=== PATIENT | male | born 2000 ===

== ENCOUNTER 2018-01-11 06:44 | Emergency (ER) | payer MEDICAID, OTHER ==
[2018-01-11 06:44] VITALS: BMI 20.7
[2018-01-11 07:03] VITALS: BP 126/77; PULSE 87; RESP 18; TEMP 98; O2SAT 100
--- NOTE | 2018-01-11 07:25 | ED PDOC ---
HPI: General Adult Time Seen by Provider: 01/11/18 07:10 Chief Complaint (Nursing): ENT Problem Chief Complaint (Provider): ENT Problem History Per: Patient History/Exam Limitations: no limitations Onset/Duration Of Symptoms: Mins (x 30) Current Symptoms Are (Timing): Still Present Additional Complaint(s): Mr. Sherman is a 17 year old male who presents to the emergency department with soft rubber part of the ear bud stuck in the right ear since this morning. Patient tried to get it out, but pushed it further in. Patient reports decreased hearing. PMD: Abassi Past Medical History Reviewed: Historical Data, Nursing Documentation, Vital Signs Vital Signs: Last Vital Signs Temp 98.0 F 01/11/18 06:54 Pulse 87 01/11/18 06:54 Resp 18 01/11/18 06:54 BP 126/77 01/11/18 06:54 Pulse Ox 100 01/11/18 07:55 - Medical History PMH: No Chronic Diseases - Surgical History Surgical History: Appendectomy - Family History Family History: States: Unknown Family Hx - Immunization History Hx Tetanus Toxoid Vaccination: No Hx Influenza Vaccination: No Hx Pneumococcal Vaccination: No - Home Medications Home Medications: Ambulatory Orders Medication Instructions Recorded Neomycin/Polymyxin/Hydrocort 3 drop AD TID #1 bottle 01/11/18 [Cortisporin Otic Soln] - Allergies Allergies/Adverse Reactions: Allergies Allergy/AdvReac Type Severity Reaction Status Date / Time No Known Allergies Allergy Verified 01/11/18 06:53 Review of Systems ROS Statement: Except As Marked, All Systems Reviewed And Found Negative ENT: Positive for: Other (Decreased hearing) Physical Exam - Reviewed Nursing Documentation Reviewed: Yes Vital Signs Reviewed: Yes - Physical Exam ENT: Positive for: Other (Foreign body in right ear canal) - ECG O2 Sat by Pulse Oximetry: 100 (RA) Pulse Ox Interpretation: Normal Medical Decision Making Medical Decision Making: Procedure: Foreign body removal Alligator forceps were used to remove foreign body from right ear canal. Reexamined right ear canal Mild erythema. No discharge. Upon provider evaluation patient is medically stable, and requires no further treatment in the ED at this time. Patient will be discharged with Rx for Cortisporin Otic Soln. Counseling was provided and all questions were answered regarding diagnosis. There is agreement to discharge plan. Return if symptoms persist or worsen. Scribe Attestation: Documented by Vinnie Portillo, acting as a scribe for Berenice Perkins MD. Provider Scribe Attestation: All medical record entries made by the Scribe were at my direction and personally dictated by me. I have reviewed the chart and agree that the record accurately reflects my personal performance of the history, physical exam, medical decision making, and the department course for this patient. I have also personally directed, reviewed, and agree with the discharge instructions and disposition. Disposition - Clinical Impression Clinical Impression: Foreign body in right ear - Patient ED Disposition Is Patient to be Admitted: No - Disposition Referrals: Josr Bajwa MD [Family Provider] - Disposition: Routine/Home Disposition Time: 07:29 Condition: STABLE Prescriptions: Neomycin/Polymyxin/Hydrocort [Cortisporin Otic Soln] 3 drop AD TID #1 bottle Instructions: Removing Objects Stuck in the Ear Forms: [facility] ([place]ese)
== END 2018-01-11 07:40 | disposition home or self-care (01) ==
LOC: H.ER 06:44
DX: T16.1XXA Foreign body in right ear, initial encounter (principal)

== ENCOUNTER 2019-02-28 13:32 | Emergency (ER) | payer OTHER, MEDICAID ==
[2019-02-28 13:32] VITALS: BMI 23.1
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
[2019-02-28 17:44] VITALS: BP 123/63; PULSE 73; RESP 18; TEMP 97.7
[2019-02-28 18:56] VITALS: O2SAT 99
== END 2019-02-28 17:40 | disposition home or self-care (01) ==
LOC: H.ER 13:32
DX: F07.81 Postconcussional syndrome (principal); V43.62XA Car passenger injured in collision with other type car in traffic accident, initial encounter
CPT/HCPCS: 70450; 96372; 99283; J1885